=== PATIENT | female | born 1940 | race Caucasian/White ===

== ENCOUNTER 2016-10-07 13:07 | Emergency (ER) | payer OTHER, MEDICARE ==
[~2016-10-07] VITALS: Ht 160 cm; Wt 61.6 kg
[2016-10-07 13:08] VITALS: TEMP 36.4; Ht 160 cm; Wt 61.6 kg
[2016-10-07] MEDS ORDERED: SIMV10TA2 PO (13:32)
[2016-10-07] MEDS ORDERED: SYN50 PO (13:32)
[2016-10-07] MEDS ORDERED: ACETAMINOPHEN 500 MG TAB PO STA (13:58)
--- NOTE | 2016-10-07 14:17 | EMERGENCY ROOM VISIT NOTE ---
History Report prepared by Triston: Merlin Herman Under the Supervision of: Dr. Donald Nascimento D.O. First contact with patient: 13:46 Chief Complaint: FALL Stated Complaint: FALL/ FACIAL PAIN History of Present Illness The patient is a 76 year old female who presents to the Emergency Room with complaints of an acute fall that occurred earlier this morning. The patient tripped while she was walking and landed on her face. The patient did not lose consciousness. She complains of pain to the left side of her face and a headache. She also notes that her lips feel numb. The patient does not have any ringing in her ears. She denies neck or leg pain. The patient has not taken anything for pain. The patient does not have any medical problems. She is s/p appendectomy. The patient denies alcohol or tobacco use. Source of History: patient Onset: this morning Position: other (global) Quality: other (fall) Timing: other (acute) Associated Symptoms: + numbness, No LOC, No neck pain Review of Systems See HPI for pertinent positives & negatives. A total of 10 systems reviewed and were otherwise negative. Past Medical & Surgical Surgical Problems: (1) S/P appendectomy Family History Patient reports no known family medical history. Social History Smoking Status: Never Smoker Alcohol Use: none Housing Status: lives with family Current/Historical Medications Scheduled Cephalexin Monohydrate (Keflex), 500 MG PO QID Levothyroxine Sodium (Synthroid), 50 MCG PO QAM Simvastatin (Zocor), 10 MG PO QAM Scheduled PRN Oxycodone Immediate Rel Tab (Roxicodone Ir), 1 TAB PO Q4H PRN for Severe Pain Allergies Coded Allergies: No Known Allergies (Unverified , 10/07/16) Physical Exam Vital Signs Date Time Temp Pulse Resp B/P Pulse Ox O2 Delivery O2 Flow Rate FiO2 10/07/16 15:05 98 16 140/73 95 Room Air 10/07/16 13:08 36.4 95 20 140/86 99 Room Air Physical Exam GENERAL: Patient is awake, alert, and in no acute distress. Patient is resting comfortably and showing no signs of anxiety EYES: The conjunctivae are clear. The pupils are round and reactive. EARS, NOSE, MOUTH AND THROAT: The nose is without any evidence of any deformity. Mucous membranes are moist tongue is midline. TMs are clear bilaterally.No occlusion noted. Clotted blood in the left nare with no active bleeding. NECK: The neck is nontender and supple. Cervical spine was clinically cleared in the emergency room. RESPIRATORY: Normal respiratory effort is noted there is no evidence of wheezing rhonchi or rales CARDIOVASCULAR: Regular rate and rhythm noted there no murmurs rubs or gallops normal S1 normal S2 GASTROINTESTINAL: The abdomen is soft. Bowel sounds are present in all quadrants. Abdomen is nontender BACK: No midline tenderness or or step-off noted range of motion in flexion extension as well as rotation no signs of muscle spasm noted MUSCULOSKELETAL/EXTREMITIES: There is no evidence of gross deformity full range of motion is noted in the hips and shoulders. Tenderness over the left TMJ. SKIN: There is no obvious evidence of any rash. There are no petechiae, pallor or cyanosis noted. NEUROLOGIC: Patient is awake alert and oriented x3 strength is symmetric patellar reflexes are 2+ bilaterally Medical Decision & Procedures ER Provider Diagnostic Interpretation: CT results as stated below per my review and radiologist interpretation. MAXILLOFACIAL CT CT DOSE: 761.22 mGy.cm HISTORY: Trauma fall TECHNIQUE: Multiaxial CT images of the maxillofacial region were performed and reformatted in the coronal plane without the use of contrast. COMPARISON: None. FINDINGS: Depressed fracture left zygomatic arch. Slightly depressed fracture lateral wall left maxillary sinus as well as left orbital margin. Globes are symmetric. The orbital floors are intact. The retroseptal structures are intact. No evidence for muscular entrapment IMPRESSION: 1. Moderately depressed fracture left zygomatic arch. Depression is estimated at 5 mm. 2. Focal depressed fracture lateral wall left maxillary sinus estimated at 4 mm. 3. Fracture lateral wall left orbit with depression estimated 2 mm. 4. No evidence for muscular entrapment Electronically signed by: Hay Dobbins M.D. 10/07/2016 2:45 PM Dictated Date/Time: 10/07/2016 2:[address]AST CT DOSE: HISTORY: Trauma fall TECHNIQUE: Multiaxial CT images of the head were performed without the use of intravenous contrast. Comparison: None. Findings: The paranasal sinuses and mastoid air cells are clear. Skull is generally intact. Fracture lateral wall left orbit and left maxillary sinus. Depressed fracture left second metacarpal. Sinuses are considered generally clear. Brain is unremarkable. There is no evidence for acute intracranial hemorrhage. There is no midline shift. Impression: 1. Negative study of the brain. 2. Facial fractures which will be evaluated on the patient's CT of the maxillofacial region Electronically signed by: Hay Dobbins M.D. 10/07/2016 2:41 PM Dictated Date/Time: 10/07/2016 2:40 PM Medications Administered Medications (Trade) Dose Ordered Sig/Teresa Route Start Time Stop Time Status Last Admin Dose Admin Acetaminophen (Tylenol Tab) 1,000 mg NOW STAT PO 10/07/16 13:58 10/07/16 13:59 DC 10/07/16 14:03 1,000 MG Cephalexin Monohydrate (Keflex Cap) 500 mg NOW ONCE PO 10/07/16 15:00 10/07/16 15:01 DC 10/07/16 15:03 500 MG Cephalexin Monohydrate (Keflex 500MG Home Pack) 1 homepack NOW ONCE PO 10/07/16 15:00 10/07/16 15:01 DC 10/07/16 15:02 1 HOMEPACK Oxycodone HCl (Roxicodone Immediate Rel 5MG Home Pack) 1 homepack UD ONCE PO 10/07/16 15:00 10/07/16 15:01 DC 10/07/16 15:05 1 HOMEPACK Ondansetron HCl (ZOFRAN ODT 4MG Home Pack) 1 homepack UD ONCE PO 10/07/16 15:00 10/07/16 15:01 DC 10/07/16 15:03 1 HOMEPACK ED Course 1355: The patient was evaluated in room A12b. A complete history and physical examination were performed. 1358: Tylenol 1000 mg PO 1500: Zofran Odt 4 mg PO home pack, Oxycodone IR 5 mg PO home pack, Keflex 500 mg PO home pack, Keflex 500 mg PO. 1505: Reassessed the patient. Discussed the findings with her. She verbalized understanding and agreement of the treatment plan. The patient is ready for discharge. Medical Decision Etiologies such as fracture, dislocation, intra-abdominal, pneumothorax, intrathoracic , intracranial, neurologic, as well as other traumatic pathologies were entertained. Nursing notes reviewed. The patient is a 76-year-old female who presented to the emergency department for an evaluation after a fall. The patient had significant left facial trauma. She is not currently taking anticoagulation. The patient's CAT scan didn't reveal multiple facial bone fractures. She was started on antibiotics. She was treated with pain medication in the emergency department. On subsequent reevaluation she was feeling much better. I discussed the patient's radiographic studies with her. I called in emergency department close to her home to get follow-up information for a maxillofacial specialist. She was encouraged to continue all medications as prescribed and rest. She was also encouraged to return to the emergency department immediately if symptoms change worsen or the need arises. Otherwise she was encouraged to follow-up with the oral maxillofacial specialist as soon as possible for further management. She was also encouraged to try not to blow her nose and be careful she sneezes. She did have one episode of epistaxis while in the emergency Department which resolved spontaneously. Impression Primary Impression: Fall Additional Impressions: Head injury Facial contusion Left maxillary fracture Left orbit fracture Fracture of left zygomatic arch Scribe Attestation The scribe's documentation has been prepared under my direction and personally reviewed by me in its entirety. I confirm that the note above accurately reflects all work, treatment, procedures, and medical decision making performed by me. Departure Information Dispostion Home / Self-Care Prescriptions Oxycodone Immediate Rel Tab (ROXICODONE IR) 5 Mg Tab 1 TAB PO Q4H Y for Severe Pain, #20 TAB Prov: Donald Nascimento, 10/07/16 Cephalexin Monohydrate (KEFLEX) 500 Mg Cap 500 MG PO QID, #28 CAP Prov: Donald Nascimento DO 10/07/16 Forms HOME CARE DOCUMENTATION FORM, IMPORTANT VISIT INFORMATION Patient Instructions ED Head Injury Closed, Fx Facial, My [facility] Additional Instructions Call the facial surgeon on Sunday to schedule a follow-up appointment. Rest and avoid any strenuous activity. Continue using Tylenol as directed for pain. If you start to have a nosebleed again I would recommend pinching the soft part ear nose and leaning forward. If symptoms do not stop go directly to your closest emergency department. Call Dr Alex Song [phone] on Sunday to schedule a follow up appointment. Problem Qualifiers
--- NOTE | 2016-10-07 14:43 | DIAGNOSTIC IMAGING REPORT ---
HEAD CT NONCONTRAST CT DOSE: HISTORY: Trauma fall TECHNIQUE: Multiaxial CT images of the head were performed without the use of intravenous contrast. Comparison: None. Findings: The paranasal sinuses and mastoid air cells are clear. Skull is generally intact. Fracture lateral wall left orbit and left maxillary sinus. Depressed fracture left second metacarpal. Sinuses are considered generally clear. Brain is unremarkable. There is no evidence for acute intracranial hemorrhage. There is no midline shift. Impression: 1. Negative study of the brain. 2. Facial fractures which will be evaluated on the patient's CT of the maxillofacial region Electronically signed by: Hay Dobbins M.D. 10/07/2016 2:41 PM Dictated Date/Time: 10/07/2016 2:40 PM
--- NOTE | 2016-10-07 14:47 | DIAGNOSTIC IMAGING REPORT ---
MAXILLOFACIAL CT CT DOSE: 761.22 mGy.cm HISTORY: Trauma fall TECHNIQUE: Multiaxial CT images of the maxillofacial region were performed and reformatted in the coronal plane without the use of contrast. COMPARISON: None. FINDINGS: Depressed fracture left zygomatic arch. Slightly depressed fracture lateral wall left maxillary sinus as well as left orbital margin. Globes are symmetric. The orbital floors are intact. The retroseptal structures are intact. No evidence for muscular entrapment IMPRESSION: 1. Moderately depressed fracture left zygomatic arch. Depression is estimated at 5 mm. 2. Focal depressed fracture lateral wall left maxillary sinus estimated at 4 mm. 3. Fracture lateral wall left orbit with depression estimated 2 mm. 4. No evidence for muscular entrapment Electronically signed by: Hay Dobbins M.D. 10/07/2016 2:45 PM Dictated Date/Time: 10/07/2016 2:42 PM
[2016-10-07] MEDS ORDERED: OXYCODONE IR HOME PACK PO ONE (15:00)
[2016-10-07] MEDS ORDERED: CEPHALEXIN MONOHYDRATE 250 MG CAP PO ONE (15:00)
[2016-10-07] MEDS ORDERED: ONDANSETRON HOME PACK 4MG OD TAB PO ONE (15:00)
[2016-10-07] MEDS ORDERED: CEPHALEXIN 500MG HOME PACK 1 EA BTL PO ONE (15:00)
[2016-10-07] MEDS ORDERED: CEPH500C2 PO (15:03)
[2016-10-07] MEDS ORDERED: OXYC1TAB3 PO (15:03)
[2016-10-07 15:05] VITALS: BP 140/73; PULSE 98; O2SAT 95
== END 2016-10-07 15:25 | disposition home or self-care (01) ==
LOC: EDBD 13:07 → C.EDA 13:11
DX: S02.40DA Maxillary fracture, left side, initial encounter for closed fracture (principal); S02.82XA Fracture of other specified skull and facial bones, left side, initial encounter for closed fracture; S02.40FA Zygomatic fracture, left side, initial encounter for closed fracture; Z79.899 Other long term (current) drug therapy; W18.09XA Striking against other object with subsequent fall, initial encounter; Y93.01 Activity, walking, marching and hiking; Y99.8 Other external cause status